=== PATIENT | female | born 1965 | race Caucasian/White ===

== ENCOUNTER 2016-05-01 11:40 | Observation (INO) | payer OTHER ==
[~2016-05-01] VITALS: Ht 160 cm; Wt 64.1 kg
[~2016-05-01 11:40] MED LIST: DOCU LIQUI50 MG/5 ML PO; ESTRADIOL1 MG PO; LORATADINE10 M2 PO; NAPROXEN500 MG PO; OMEPRAZOLE20 MG PO; ONDANSETRON ODT4 MG PO; OXYCODONE H5 MG/5 ML PO; PANTOPRAZOLE SO40 MG PO; PREMARIN0.45 MG PO; PROVENTIL HFA6.7 GM IH; Proventil,Ventolin H IH; SUCRALFATE1 GM PO; SUDAFED30 MG PO; SYMBICORT60 INHALA1 IH; Zithromax PO; predniSONE PO
[2016-05-01] MEDS ORDERED: TRAMADOL HCL50 MG PO (12:05)
[2016-05-01] MEDS ORDERED: HAIR, SKIN & N1 EAC1 PO (12:06)
[2016-05-01] MEDS ORDERED: MELOXICAM15 MG PO (12:07)
[2016-05-01 12:37] LABS: HEMATOCRIT 36.7 % (36.0-46.0); MCH 29.9 PG (29.0-34.0); MCHC 32.4 G/DL (30.0-36.0); MCV 92.2 FL (83-99); MEAN PLAT.VOLUME 9.6 uM^3 (9.5-12.4); PLATELET COUNT 276 K/uL (156-360); RBC DIS.WIDTH-CV 11.5 % (11.8-14.6); RBC DIS.WIDTH-SD 39.2 % (39-53); RED BLOOD COUNT 3.98 M/uL (3.80-5.20); WHITE BLOOD COUNT 3.7 K/uL (4.1-10.2)
[2016-05-01 12:50] LABS: CHLORIDE 104 mEq/L (99-109); POTASSIUM 3.9 mEq/L (3.7-5.4); SODIUM 139 mEq/L (136-147)
[2016-05-01 12:52] LABS: GLUCOSE 83 mg/dL (70-99)
[2016-05-01 12:53] LABS: ANION GAP 8 MEQ/L (2-14)
[2016-05-01 12:56] LABS: GFR ESTIMATE (CALCULATED) > 59 mL/min/
[2016-05-01 12:57] LABS: UREA NITROGEN (BUN) 14 mg/dL (9-23)
[2016-05-01 12:58] LABS: TROP-I INTERPRETATION NEGATIVE; TROPONIN-I < 0.01 ng/mL (0.0-0.30)
[2016-05-01] MEDS ORDERED: LIDOCAINE700 MG TD (14:51)
[2016-05-01] MEDS ORDERED: LORATADINE10 M2 PO (14:52)
[2016-05-01 15:53] VITALS: BP 176/94
[2016-05-01 17:06] VITALS: BP 148/82
[2016-05-01 18:19] LABS: AMYLASE 39 IU/L (1-118)
[2016-05-01 18:23] LABS: TOTAL BILIRUBIN 0.8 mg/dL (0.0-1.0)
[2016-05-01 18:24] LABS: ALKALINE PHOSPHATASE 73 IU/L (3-129)
[2016-05-01 18:27] LABS: DIRECT BILIRUBIN 0.5 mg/dL (0.0-0.3)
[2016-05-01 19:00] VITALS: BP 142/88
[2016-05-01 19:36] LABS: TROP-I INTERPRETATION NEGATIVE; TROPONIN-I < 0.01 ng/mL (0.0-0.30)
[2016-05-02] VITALS: BP 124/79
[2016-05-02 01:12] LABS: TROP-I INTERPRETATION NEGATIVE; TROPONIN-I < 0.01 ng/mL (0.0-0.30)
[2016-05-02 03:47] VITALS: BP 126/66
[2016-05-02 07:05] LABS: TROP-I INTERPRETATION NEGATIVE; TROPONIN-I < 0.01 ng/mL (0.0-0.30)
[2016-05-02 08:03] VITALS: BP 135/84
[2016-05-02] MEDS ORDERED: OMEPRAZOLE20 MG PO (09:28)
[2016-05-02] MEDS ORDERED: NICOTINE PATCH1 EAC1 TD (09:28)
== END 2016-05-02 10:16 | disposition home or self-care (01) ==
LOC: EME 11:40 → EDOF 14:10 → 5WEST 15:42
PROVIDERS: Internal Medicine; Internal Medicine Cardiovascular Disease
DX: R07.89 Other chest pain (principal); K44.9 Diaphragmatic hernia without obstruction or gangrene; R13.10 Dysphagia, unspecified; R10.13 Epigastric pain; K21.9 Gastro-esophageal reflux disease without esophagitis; J45.909 Unspecified asthma, uncomplicated; M19.90 Unspecified osteoarthritis, unspecified site; F17.210 Nicotine dependence, cigarettes, uncomplicated
CPT/HCPCS: 71020; 71275; 80048; 80076; 82150; 84484; 85027; 93005; 99281; 99284; C9113; G0378; J2270; J7030; J7040

== ENCOUNTER 2016-12-13 11:32 | Emergency (ER) | payer OTHER ==
[~2016-12-13] VITALS: Ht 160 cm; Wt 65.1 kg
[~2016-12-13 11:32] MED LIST changes: +HAIR, SKIN & N1 EAC1 PO; +LIDOCAINE700 MG TD; +MELOXICAM15 MG PO; +NICOTINE PATCH1 EAC1 TD; +TRAMADOL HCL50 MG PO
[2016-12-13 12:10] LABS: EOSINOPHIL (%) 2.6 % (0-5); EOSINOPHIL COUNT 0.2 K/uL (0-0.3); HEMATOCRIT 35.7 % (36.0-46.0); IMMATURE GRANULOCYTE (%) 0.4 % (0.0-0.7); INSTRUMENT ABS NEUTROPHIL CT 4.4 K/uL; LYMPHOCYTE COUNT 1.6 K/uL (1.0-2.8); MCH 29.4 PG (29.0-34.0); MCHC 31.7 G/DL (30.0-36.0); MONOCYTE (%) 9.5 % (3-12); MONOCYTE COUNT 0.7 K/uL (0-0.8); NEUTROPHIL (%) 63.8 % (45-76); NEUTROPHIL COUNT 4.4 K/uL (1.8-6.4); PLATELET COUNT 342 K/uL (156-360); RBC DIS.WIDTH-CV 11.8 % (11.8-14.6); RBC DIS.WIDTH-SD 40.9 % (39-53); RED BLOOD COUNT 3.84 M/uL (3.80-5.20); WHITE BLOOD COUNT 6.8 K/uL (4.1-10.2)
[2016-12-13 12:22] LABS: CHLORIDE 105 mEq/L (99-109); POTASSIUM 4.2 mEq/L (3.7-5.4); SODIUM 143 mEq/L (136-147)
[2016-12-13 12:23] LABS: GLUCOSE 117 mg/dL (70-99)
[2016-12-13 12:25] LABS: ANION GAP 10 MEQ/L (2-14)
[2016-12-13 12:27] LABS: GFR ESTIMATE (CALCULATED) > 59 mL/min/
[2016-12-13 12:28] LABS: UREA NITROGEN (BUN) 16 mg/dL (9-23)
[2016-12-13 12:30] LABS: URIC ACID 7.9 mg/dL (3.1-9.2)
[2016-12-13] MEDS ORDERED: COLCHICINE0.6 M1 PO (12:55)
[2016-12-13] MEDS ORDERED: INDOCIN50 MG PO (12:55)
[2016-12-13 13:29] VITALS: BP 137/82
== END 2016-12-13 13:30 | disposition home or self-care (01) ==
LOC: EME 11:32
PROVIDERS: Emergency Medicine
DX: M10.072 Idiopathic gout, left ankle and foot (principal); Z72.0 Tobacco use
CPT/HCPCS: 73630; 80048; 84550; 85025; 99281; 99284